=== PATIENT | male | born 1960 | race Caucasian/White ===

== ENCOUNTER 2018-01-21 20:09 | Emergency (ER) | payer OTHER ==
[~2018-01-21] VITALS: Ht 185.4 cm; Wt 85.0 kg
[2018-01-21 20:10] VITALS: BP 145/85
== END 2018-01-21 21:15 | disposition home or self-care (01) ==
LOC: ED 21:09
DX: B02.9 Zoster without complications (principal)
CPT/HCPCS: 99283

== ENCOUNTER 2021-02-04 17:33 | Emergency (ER) | payer BC, OTHER ==
[~2021-02-04] VITALS: Ht 185.4 cm; Wt 79.1 kg
--- NOTE | 2021-02-04 17:40 | NUR ---
pt sts he drank a beer an hour ago, drinks 5 24 ounc beers a day,. as
--- NOTE | 2021-02-04 17:58 | NUR ---
CC OF PAINFUL URINATION AND CONSTIPATION. PT STATES HE HAS HAD PAIN FOR "MONTHS". PT ALSO C/O NOT ABLE TO GET ERACTION. PT WITH RASPY VOICE. DENIES HAVING UROLOGIST.
--- NOTE | 2021-02-04 18:49 | NUR ---
REPORT GIVEN TO ANGELA AND DENA MIGUEL. PT AWARE OF PROVIDING UA, UNABLE TO URINATE AT THIS TIME
--- NOTE | 2021-02-04 18:52 | NUR ---
PT STATES HE IS THIRSTY. WATIING FOR RESULT BEFORE PO.
--- NOTE | 2021-02-04 18:52 | NUR ---
RECIEVED REPORT FROM MADALYN MIGUEL.
[2021-02-04 19:25] LABS: MICROSCOPIC NOT IND
[2021-02-04 19:34] VITALS: BP 112/69
--- NOTE | 2021-02-04 20:12 | NUR ---
Discharge instructions given. All questions and concerns addressed. Patient ambulatory with a steady gait. Belongings with patient.
== END 2021-02-04 20:13 | disposition home or self-care (01) ==
LOC: ED 17:54
DX: N50.3 Cyst of epididymis (principal); R30.0 Dysuria; F17.200 Nicotine dependence, unspecified, uncomplicated
CPT/HCPCS: 76870; 81003; 99284

== ENCOUNTER 2021-07-11 05:14 | Emergency (ER) | payer SELFPAY ==
[~2021-07-11] VITALS: Ht 193 cm; Wt 85.0 kg
[2021-07-11 05:25] VITALS: BP 100/70
== END 2021-07-11 06:29 | disposition home or self-care (01) ==
LOC: ED 06:20
DX: S56.911A Strain of unspecified muscles, fascia and tendons at forearm level, right arm, initial encounter (principal); W23.1XXA Caught, crushed, jammed, or pinched between stationary objects, initial encounter; Y93.89 Activity, other specified; Y92.89 Other specified places as the place of occurrence of the external cause; Y99.8 Other external cause status
CPT/HCPCS: 73090; 96372; 99283; J1885